=== PATIENT | male | born 1950 | race American Indian/Alaskan Native ===

== ENCOUNTER 2016-08-01 21:28 | Observation (INO) | payer MEDICARE, MEDICAID ==
[2016-08-01 21:37] VITALS: BMI 25.1
--- NOTE | 2016-08-01 21:43 | ED PDOC ---
Arrival/HPI - General Time Seen by Provider: 08/01/16 21:33 Historian: Patient - History of Present Illness Narrative History of Present Illness (Text): 08/01/16 21:40 Patient presents with slurring of speech and alcohol on breath. Admits to drinking throughout the day. Pt denies suicidal or homicidal ideations. Denies any trauma or injury. Symptom Onset: Sudden Symptom Course: Unchanged Activities at Onset: Rest Context: Home Past Medical History - Provider Review Nursing Documentation Reviewed: Yes Family/Social History - Physician Review Nursing Documentation Reviewed: Yes Family/Social History: No Known Family HX Allergies/Home Meds Allergies/Adverse Reactions: Allergies Penicillins Allergy (Verified 08/01/16 21:37) [facility] Home Medications: Home Meds Medication Instructions Recorded Confirmed Unobtainable 08/01/16 08/01/16 Review of Systems - Review of Systems Systems not reviewed;Unavailable: Intoxicated Physical Exam - Physical Exam Narrative Physical Exam (Text): Patient is in no distress, no airway compromise, breathing without difficulty, good insp/exp effort. No signs of head/torso/extremity trauma. Following commands without difficulty. Head: Present: Atraumatic, Normocephalic. No: Tenderness, Contusion, Swelling, Ecchymosis, Abrasion, Laceration Pupils: Present: PERRL Extroacular Muscles: Present: EOMI Conjunctiva: Present: Normal Mouth: Present: Moist Mucous Membranes Neck: Present: Normal Range of Motion. No: MIDLINE TENDERNESS, Paraspinal Tenderness Respiratory/Chest: Present: Clear to Auscultation, Good Air Exchange. No: Respiratory Distress, Accessory Muscle Use Cardiovascular: Present: Regular Rate and Rhythm, Normal S1, S2. No: Murmurs Abdomen: Present: Normal Bowel Sounds. No: Tenderness, Distention, Peritoneal Signs, Rebound, Guarding Back: Present: Normal Inspection. No: Midline Tenderness, Paraspinal Tenderness Upper Extremity: Present: Normal Inspection. No: Cyanosis, Edema Lower Extremity: Present: Normal Inspection. No: Edema Neurological: Present: GCS=15, CN II-XII Intact Skin: Present: Warm, Dry, Normal Color. No: Rashes Lymphatic: Present: OX3, NI, NC Psychiatric: Present: Alert. Absent: Agitated, suicidal/homicidal ideations Vital Signs Temp Pulse Resp BP Pulse Ox 08/02/16 03:48 68 16 147/77 99 08/01/16 23:26 98.3 F 08/01/16 22:26 160/104 H 08/01/16 22:20 90 18 Medical Decision Making ED Course and Treatment: 08/01/16 22:19 Impression: A 66 year old male presents to the emergency department intoxicated. On physical exam, patient had no acute findings. ED OBSERVATION Discharge: Yes Date of observation admission: 08/01/16 Time of observation admission: 21:36 - Observation admission statement Patient is being placed in observation because:: alcohol intoxication - Goals of Observation Goals of observation are:: pending sobriety - Progress Note Progress Note: 08/01/16 21:36 On initial exam, patient intoxicated, no acute distress 08/01/16 23:36 Patient is in no acute distress, resting comfortably. 08/02/16 01:36 Patient is resting. 08/02/16 03:36 Patient, in no acute distress, is sleeping. 08/02/16 05:28 On reevaluation, patient is in no acute distress. 08/02/16 06:06 Pt has been closely monitored throughout the stay in the ED. Currently pt is ANOx3 to person, place, and time. Has good insight and judgment. Denies suicidal or homicidal ideations. Pt has steady gait, ambulates without difficulty, not slurring speech. Pt able to tolerate PO without any difficulty. Patient denies any complaints at this time. Patient is not tremulous, not tachycardic, no signs or symptoms of alcohol withdrawal. Pt states he understands to return to the ER right away for new or worsening symptoms or for inability to f/u with PMD or specialist as instructed. Patient states that he fully agrees with and understands discharge instructions. States that he agrees with the plan and disposition. Verbalized and repeated discharge instructions and plan. I have given the patient opportunity to ask any additional questions. - Scribe Statement Ludivina Stephenson All medical record entries made by the Scribe were at my direction and personally dictated by me. I have reviewed the chart and agree that the record accurately reflects my personal performance of the history, physical exam, medical decision making, and the department course for this patient. I have also personally directed, reviewed, and agree with the discharge instructions and disposition. Disposition/Present on Arrival - Present on Arrival Any Indicators Present on Arrival: No - Disposition Have Diagnosis and Disposition been Completed?: Yes Diagnosis: Alcohol intoxication Disposition: HOME/ ROUTINE Disposition Time: 21:36 Patient Plan: Observation Patient Problems: Current Active Problems Problem Status Onset Alcohol intoxication Acute Condition: GOOD
--- NOTE | 2016-08-01 21:44 | ED PDOC ---
Arrival/HPI - General Chief Complaint: Alcohol Ingestion Time Seen by Provider: 08/01/16 21:33 Historian: Patient Past Medical History - Provider Review Nursing Documentation Reviewed: Yes - Psychiatric Hx Substance Use: (Unable to obtain.) Family/Social History - Physician Review Nursing Documentation Reviewed: Yes Family/Social History: No Known Family HX Smoking Status: Unknown If Ever Smoked Hx Alcohol Use: Yes Hx Substance Use: (Unable to obtain.) Allergies/Home Meds Allergies/Adverse Reactions: Allergies Penicillins Allergy (Verified 08/01/16 21:37) [facility] ED OBSERVATION Date of observation admission: 08/01/16 Time of observation admission: 21:36 - Observation admission statement Patient is being placed in observation because:: alcohol intoxication - Goals of Observation Goals of observation are:: pending sobriety - Scribe Statement Ludivina Stephenson All medical record entries made by the Scribe were at my direction and personally dictated by me. I have reviewed the chart and agree that the record accurately reflects my personal performance of the history, physical exam, medical decision making, and the department course for this patient. I have also personally directed, reviewed, and agree with the discharge instructions and disposition. Disposition/Present on Arrival - Present on Arrival History of DVT/PE: No History of Uncontrolled Diabetes: No Urinary Catheter: No History of Decub. Ulcer: No History Surgical Site Infection Following: None - Disposition Disposition Time: 21:36
[2016-08-01 23:26] VITALS: TEMP 98.3
[2016-08-02 06:36] VITALS: RESP 18
[2016-08-02 06:45] VITALS: BP 168/95; PULSE 68; O2SAT 100
== END 2016-08-02 06:07 | disposition home or self-care (01) ==
LOC: ED 21:28 → MERGE 21:39 → EROBSV 21:39
PROVIDERS: ADMIT Emergency Medicine; ATTEND Emergency Medicine
DX: F10.129 Alcohol abuse with intoxication, unspecified (principal); Y90.9 Presence of alcohol in blood, level not specified
CPT/HCPCS: 82948; 99284; G0378